=== PATIENT | female | born 1985 | race Caucasian/White ===

== ENCOUNTER 2018-08-06 05:56 | Day surgery (SDC) | payer OTHER ==
[2018-08-06] MEDS ORDERED: cefTRIAXone 2 GM VIAL ONE (07:08)
--- NOTE | 2018-08-06 07:12 | ANESTHESIA ---
Pre-Anesthesia VS, & Labs - Diagnosis L shoulder labral tear, biceps tendinitis - Procedure R shoulder scope with SLAP repair Vital Signs: Temp Pulse Resp BP Pulse Ox 36.8 C 70 16 124/76 99 08/06/18 06:50 08/06/18 06:50 08/06/18 06:50 08/06/18 06:50 08/06/18 06:50 Height 5 ft 8.9 in Weight (kg) 72 kg - NPO >8 hours - Is Patient ?: Waiver signed Home Medications and Allergies Home Medications: Ambulatory Orders No Known Home Medications 07/22/18 No Known Home Medications 07/22/18 Allergies/Adverse Reactions: Allergies Allergy/AdvReac Type Severity Reaction Status Date / Time Penicillins Allergy Intermediate Unknown Verified 07/22/18 15:16 Sulfa (Sulfonamide Allergy Intermediate Unknown Verified 07/22/18 15:17 Antibiotics) Anes History & Medical History - Anesthetic History Anesthesia Complications: reports: No previous complications Family history of Anesthesia Complications: Denies Family history of Malignant Hyperthermia: Denies - Medical History Cardiovascular: reports: None Pulmonary: reports: None Gastrointestinal: reports: None Urinary: reports: None Musculoskeletal: reports: Other Endocrine/Autoimmune: reports: None Skin: reports: None - Surgical History General: Appendectomy Exam General: Alert, Oriented x3, Cooperative Dental: WNL Mouth Opening: Greater than 4 Fingerbreadths Neck Mobility: Normal Mallampati classification: II Respiratory: Lungs clear, Normal breath sounds, No respiratory distress Cardiovascular: Regular rate Neurological: Normal speech Mental/Cognitive Status: Alert/Oriented X3, Normal for patient Cognitive Status: Within normal limits Plan Anesthesia Type: General, Supraclavicular Block (possible) Regional Block: Per Surgeon's request for Post Op pain control Consent for Procedure(s) Verified and Reviewed: Yes Code Status: Attempt Resuscitation ASA classification: 1-Healthy patient Is this case an emergency?: No
[2018-08-06] MEDS ORDERED: BUPIVACAINE 0.25% PF 30 ML VIAL ONE (07:15)
[2018-08-06] MEDS ORDERED: LACTATED RINGERS 1,000 ML IV ONE (07:16)
[2018-08-06] MEDS ORDERED: EPINEPHrine 1 MG/ML AMP ONE (07:31)
[2018-08-06] MEDS ORDERED: PROPOFOL 200 MG/20 ML VIAL IVP ONE (08:30)
[2018-08-06] MEDS ORDERED: DEXAMETHASONE 4 MG/ML VIAL IVP ONE (08:30)
[2018-08-06] MEDS ORDERED: ROPIVACAINE 0.5% PF 20 ML VIAL EPI ONE (08:30)
[2018-08-06] MEDS ORDERED: NEOSTIGMINE 1 MG/1 ML 10 ML MDV IVP ONE (08:30)
[2018-08-06] MEDS ORDERED: MIDAZOLAM 2 MG/2 ML VIAL IVP ONE (08:30)
[2018-08-06] MEDS ORDERED: LIDOCAINE-MPF 2% 5 ML VIAL IM ONE (08:30)
[2018-08-06] MEDS ORDERED: GLYCOPYRROLATE 1 MG/5 ML VIAL IVP ONE (08:30)
[2018-08-06] MEDS ORDERED: fentaNYL 100 MCG/2 ML VIAL IVP ONE (08:30)
[2018-08-06] MEDS ORDERED: KETOROLAC 30 MG/ML VIAL IVP ONE (08:30)
[2018-08-06] MEDS ORDERED: ONDANSETRON 4 MG/2 ML VIAL IVP ONE (08:30)
[2018-08-06] MEDS ORDERED: ROCURONIUM 50 MG/5 ML VIAL IVP ONE (08:30)
[2018-08-06] MEDS ORDERED: BUPIVACAINE 0.25% PF 30 ML VIAL SUBQ ONE (08:43)
[2018-08-06] MEDS ORDERED: ONDANSETRON 4 MG/2 ML VIAL IVP PRN (10:06)
[2018-08-06] MEDS ORDERED: oxyCODONE 5 MG TABLET PO PRN (10:06)
[2018-08-06] MEDS ORDERED: MEPERIDINE 50 MG/ML VIAL ONE (10:16)
--- NOTE | 2018-08-06 10:16 | OPERATIVE REPORT ---
Operative Report - General Procedure Date: 08/06/18 Planned Procedure: Left shoulder labral repair & capsulorhaphy Pre-Op Diagnosis: Left shoulder anterior instability Procedure Performed: Left shoulder labral repair & capsulorhaphy Post Op Diagnosis: Left shoulder labral tear - Procedure Note Primary Surgeon: Sajan Frederick Secondary Surgeon: Dedrick Rowley Estimated Blood Loss (mL): 10 Complications: None - Other Other Information/Narrative: DETAILED PROCEDURE: Labral repair from 6:00 to 230 IMPLANTS: Knotless suture tack x3, Arthrex POSTOPERATIVE PLAN: 0-2 weeks-Sling at all times. Pendulum exercises 5 times per day. 2-6 weeks-Passive range of motion with the following limits: FF to 120, ER to 30, abduction to 90 6-12 weeks-Active range of motion in all planes without limitation. Isometric rotator cuff strengthening is allowed 12-16 weeks-Gradually increase strengthening 16 weeks and beyond-Introduce dynamic activities EXAMINATION UNDER ANESTHESIA: ROM: Full Anterior load and shift: Grade 2 laxity Posterior load and shift: Grade 1 laxity Inferior sulcus: Grade 1 ARTHROSCOPIC FINDINGS: Rotator interval: Intact Biceps tendon & SLAP: No tear, anchor intact Subscapularis: Intact Rotator Cuff: Intact HAGL: No tear Labrum: Bankart tear with a small G LAD lesion. Labral tissue had scarred medially on the neck of the glenoid. It was released and brought back to its normal position. Glenoid Cartilage: Small G LAD lesion along the anterior inferior glenoid Humeral Head Cartilage: Intact INDICATION FOR SURGERY: 32-year-old female who sustained an anterior shoulder dislocation while hiking approximately 1 year ago. She performed extensive physical therapy and return to most of her activities but continued to have persistent instability that limited her more dynamic and challenging activities. Nonoperative managment failed to resolve symptoms. The risks, benefits, and alternatives were discussed. Risks included pain, bleeding, infection, damage to nearby structures, lack of symptom relief, implant complications, stiffness, need for further surgeries, DVT, PE, stroke, and even . He signed a written consent form. PROCEDURE IN DETAIL: The patient was met in the preoperative holding on the day of the procedure. Operative extremity was signed. Consent was verified. He desired to proceed. Regional anesthesia was obtained in the preoperative area. They were brought to the operating room and surrendered to anesthesia. Once general anesthesia was obtained they were placed in the lateral decubitus position with the operative side up. An axillary roll was placed and all bony prominences were well-padded. They were then prepped and draped in the standard sterile fashion. A surgical timeout was held to confirm the patient procedure, identity, procedure, laterality, allergies, images, and antibiotics. All were in agreement we proceeded. Balanced suspension was applied and a standard diagnostic arthroscopy was performed utilizing posterior and anterior superior portal sites. The anterior superior portal site was created under direct visualization. The findings of the diagnostic arthroscopy can be found above. A mid glenoid portal was then created under direct visualization bordering the subscapularis tendon. I then used a combination of high and low angled elevators to develop the labral tear and release it from off the glenoid neck. I then used to the pineapple rasp to finalize my release and abraded the bone to a bleeding bed. A sucker shaver was placed in the interval to debride any loose tissue and further abrade the glenoid neck. Any loose cartilage was debrided at that time. I then established a percutaneous 7:00 portal utilizing the Arthrex system. I then sequentially placed anchors at the 530 positions. The suture was passed using an appropriate 45 degree suture lasso. A large capsular shift was performed. The labrum was secured using knotless technique. Appropriate tension was confirmed with a probe and the excess suture was cut. Using the same technique additional anchors were placed at 4:00, and 230 positions. A large capsular shift was again performed and a labral bumper was recreated. Balanced suspension was then released and final images were taken showing the humeral head centered in the glenoid. The portal sites were then closed with 3-0 Monocryl buried. Mastisol and Steri- Strips were applied. A sterile dressing and a sling was applied. He was awakened and transferred to the recovery room.
[2018-08-06] MEDS ORDERED: ONDANSETRON 4 MG/2 ML VIAL ONE (10:50)
[2018-08-06 11:32] VITALS: BP 114/63
== END 2018-08-06 05:57 | disposition home or self-care (01) ==
LOC: SDS 05:56
PROVIDERS: ATTEND Orthopaedic Surgery
PROC: 0RQK4ZZ Repair Left Shoulder Joint, Percutaneous Endoscopic Approach (ICD-10-PCS; principal; 2018-08-06 07:30)
DX: M24.812 Other specific joint derangements of left shoulder, not elsewhere classified (principal); S43.005S Unspecified dislocation of left shoulder joint, sequela
CPT/HCPCS: 29806; C1713; J2175; J2795; J7120